=== PATIENT | male | born 1990 | race Caucasian/White ===

== ENCOUNTER 2024-11-28 15:30 | Emergency (ER) | payer OTHER ==
[~2024-11-28 15:30] MED LIST: Iopamidol 370 76% 100 ML VIAL ONE
== END 2024-11-28 17:10 ==
LOC: NAV ERS 15:30 → EEVIPCON 15:30 → NAV ERS 17:10
DX: T71.162A Asphyxiation due to hanging, intentional self-harm, initial encounter (principal)
CPT/HCPCS: 70498; 72125; 72128; Q9967